=== PATIENT | female | born 1935 | race Caucasian/White ===

== ENCOUNTER → 2020-11-15 | Outpatient (CLI) | payer MEDICARE, BC ==
[~2020-11-15] MED LIST: CEFAZOLIN 1000MG PREMIX 50 ML IV SCH; CEFAZOLIN SODIUM 1000MG/VIAL ONE; DEXAMETHASONE 4MG/ML 1ML VIAL ONE; DILT120C51 PO; FAMO20TA8 MT; FENTANYL CITRATE/PF 50MCG/ML 2ML VIAL ONE; FERR324T4 MT; HYDROMORPHONE HCL/PF 2MG/ML (OR) ONE; LEVO75TA7 PO; METO-539 PO; MIDAZOLAM HCL 2 MG/2 ML VIAL ONE; PROPOFOL 10MG/ML 100ML 100 ML IV ONE; RIVA20TA PO; SPIR25TA6 PO; TRIA1CAP49 PO
== END | disposition home or self-care (01) ==
LOC: LAB 10:52
PROVIDERS: ATTEND Internal Medicine Clinical Cardiac Electrophysiology
DX: Z45.018 Encounter for adjustment and management of other part of cardiac pacemaker (principal); R00.0 Tachycardia, unspecified; I48.91 Unspecified atrial fibrillation; R00.1 Bradycardia, unspecified; R42 Dizziness and giddiness; Z20.828 Contact with and (suspected) exposure to other viral communicable diseases
CPT/HCPCS: 87426; J0690; J1100; J1170; J2250; J2704; J3010

== ENCOUNTER → 2022-03-13 | Outpatient (CLI) | payer MEDICARE, BC ==
[~2022-03-13] MED LIST changes: -CEFAZOLIN 1000MG PREMIX 50 ML IV SCH; -CEFAZOLIN SODIUM 1000MG/VIAL ONE; -DEXAMETHASONE 4MG/ML 1ML VIAL ONE; -FENTANYL CITRATE/PF 50MCG/ML 2ML VIAL ONE; -HYDROMORPHONE HCL/PF 2MG/ML (OR) ONE; -MIDAZOLAM HCL 2 MG/2 ML VIAL ONE; -PROPOFOL 10MG/ML 100ML 100 ML IV ONE; +SODIUM BICARBONATE 4% (2.4MEQ) 5ML VIAL IV ONE; -TRIA1CAP49 PO
== END | disposition home or self-care (01) ==
LOC: US 09:22
PROVIDERS: ATTEND Specialist
DX: J90 Pleural effusion, not elsewhere classified (principal); R06.02 Shortness of breath; Z87.891 Personal history of nicotine dependence; Z79.899 Other long term (current) drug therapy; Z98.890 Other specified postprocedural states; Z82.49 Family history of ischemic heart disease and other diseases of the circulatory system; Z83.3 Family history of diabetes mellitus
CPT/HCPCS: 32555; 71045; 82040; 82150; 83615; 84157; 87070; 87205; 89050; J3490

== ENCOUNTER 2022-09-16 12:55 | Emergency (ER) | payer MEDICARE, BC ==
[~2022-09-16] VITALS: Ht 162.6 cm; Wt 68.0 kg
[~2022-09-16 12:55] MED LIST changes: -SODIUM BICARBONATE 4% (2.4MEQ) 5ML VIAL IV ONE
[2022-09-16 13:32] VITALS: BP 149/52
[2022-09-16] MEDS ORDERED: LEVOTHYROXINE SODIUM 75MCG TABLET PO NR (14:45)
[2022-09-16] MEDS ORDERED: RIVAROXABAN 10 MG TABLET PO SCH (17:00)
[2022-09-16] MEDS ORDERED: METOPROLOL TARTRATE 50MG TABLET PO SCH (21:00)
== END 2022-09-16 15:04 | disposition left against medical advice (07) ==
LOC: ER 12:55
DX: M79.89 Other specified soft tissue disorders (principal); I51.7 Cardiomegaly; E05.90 Thyrotoxicosis, unspecified without thyrotoxic crisis or storm; I51.9 Heart disease, unspecified; M19.90 Unspecified osteoarthritis, unspecified site; I48.91 Unspecified atrial fibrillation; Z95.0 Presence of cardiac pacemaker
CPT/HCPCS: 93005; 99283

== ENCOUNTER 2023-10-04 13:42 | Emergency (ER) | payer MEDICARE, BC ==
[~2023-10-04] VITALS: Ht 170.2 cm; Wt 58.0 kg
[2023-10-04 13:54] VITALS: O2SAT 100
[2023-10-04] MEDS ORDERED: BACITRACIN ZINC OINT UDPKT TOP ONE (14:15)
[2023-10-04] MEDS ORDERED: TETANUS, DIPHTHERIA, PERTUSSIS VAC/PF 0.5ML (>10YR OLD) IM ONE (14:15)
[2023-10-04 14:50] VITALS: BP 112/67; PULSE 84; RESP 17; TEMP 97.9
== END 2023-10-04 14:51 | disposition home or self-care (01) ==
LOC: ER 13:42
DX: S51.811A Laceration without foreign body of right forearm, initial encounter (principal); Z95.0 Presence of cardiac pacemaker; Z79.899 Other long term (current) drug therapy; X58.XXXA Exposure to other specified factors, initial encounter; Y93.89 Activity, other specified; Y92.89 Other specified places as the place of occurrence of the external cause; Y99.8 Other external cause status
CPT/HCPCS: 90471; 90715; 99283